=== PATIENT | female | born 1970 | race African-American/Black ===

== ENCOUNTER 2017-03-29 16:20 | Emergency (ER) | payer BC ==
[~2017-03-29] VITALS: Ht 165.1 cm; Wt 84.2 kg
[~2017-03-29 16:20] MED LIST: Berocca Plus PO; Ecotrin PO; FERROUS SULFAT324 M1 PO; Keflex PO; PriLOSEC PO; Tylenol Regular Stre PO
[2017-03-29 16:55] LABS: HEMATOCRIT 32.7 % (36.0-46.0); MCH 29.1 PG (29.0-34.0); MCV 88.1 FL (83-99); PLATELET COUNT 292 K/uL (156-360); RBC DIS.WIDTH-CV 14.5 % (11.8-14.6); RBC DIS.WIDTH-SD 46.8 % (39-53); RED BLOOD COUNT 3.71 M/uL (3.80-5.20); WHITE BLOOD COUNT 6.7 K/uL (4.1-10.2)
[2017-03-29 17:03] LABS: CHLORIDE 108 mEq/L (99-109); POTASSIUM 4.3 mEq/L (3.7-5.4); SODIUM 141 mEq/L (136-147)
[2017-03-29 17:05] LABS: GLUCOSE 93 mg/dL (70-99)
[2017-03-29 17:06] LABS: ANION GAP 7 MEQ/L (2-14)
[2017-03-29 17:09] LABS: GFR ESTIMATE (CALCULATED) > 59 mL/min/; UREA NITROGEN (BUN) 13 mg/dL (9-23)
[2017-03-29 17:17] LABS: QUANTITATIVE HCG < 4.0 MIU/ML
[2017-03-29 17:41] LABS: ADD MIUA? YES; BILIRUBIN NEGATIVE; BLOOD SMALL; COLOR YELLOW ((YELLOW)); GLUCOSE (STRIP) NEGATIVE; KETONES NEGATIVE; LEUKOCYTES NEGATIVE; NITRITE NEGATIVE; PROTEIN (STRIP) NEGATIVE
[2017-03-29 17:49] LABS: BACTERIA NONE SEEN /HPF; EPITHELIAL CELLS RARE /HPF; MUCUS TRACE /LPF; WHITE BLOOD CELLS 0-5 /HPF (0-5)
[2017-03-29] MEDS ORDERED: PERCOCET 5/31 TABLET PO (19:40)
[2017-03-29 19:53] VITALS: BP 117/64
== END 2017-03-29 19:54 | disposition home or self-care (01) ==
LOC: EME 16:20
PROVIDERS: Nurse Practitioner Family
DX: R10.2 Pelvic and perineal pain (principal); D25.9 Leiomyoma of uterus, unspecified; M54.5 Low back pain; R30.0 Dysuria; Z79.82 Long term (current) use of aspirin
CPT/HCPCS: 76856; 80048; 81003; 84702; 85027; 99281; 99284